=== PATIENT | female | born 1985 | race Caucasian/White ===

== ENCOUNTER 2023-07-17 09:07 | Emergency (ER) | payer OTHER ==
[~2023-07-17] VITALS: Ht 160 cm; Wt 53.3 kg
[2023-07-17] MEDS ORDERED: ACETAMINOPHEN 500 MG TAB PO ONE (09:45)
[2023-07-17] MEDS ORDERED: SUMAtriptan succinate 50 MG TAB PO ONE (09:45)
[2023-07-17] MEDS ORDERED: IBUPROFEN 400 MG TAB PO ONE (09:45)
[2023-07-17] MEDS ORDERED: IMITREX50 MG PO (10:55)
[2023-07-17 11:02] VITALS: BP 121/86
== END 2023-07-17 11:04 | disposition home or self-care (01) ==
LOC: ED 09:07
DX: R51.9 Headache, unspecified (principal); H53.9 Unspecified visual disturbance; Z88.2 Allergy status to sulfonamides
CPT/HCPCS: 99283; A9270